=== PATIENT | female | born 2000 | race Two or more races ===

== ENCOUNTER 2020-10-08 05:55 | Inpatient (IN) | payer OTHER ==
[~2020-10-08] VITALS: Ht 172.7 cm; Wt 3.2 kg
[2020-10-08] MEDS ORDERED: PRENATAL CAPLE1 EAC1 (07:25)
== END 2020-10-11 14:13 | disposition home or self-care (01) | DRG 788 ==
LOC: OB/GYN 05:55 → LDR 05:55 → OB/GYN 22:01
PROVIDERS: ADMIT Specialist; ATTEND Specialist
PROC: 3E033VJ Introduction of Other Hormone into Peripheral Vein, Percutaneous Approach (ICD-10-PCS; 2020-10-08)
PROC: 3E0P7VZ Introduction of Hormone into Female Reproductive, Via Natural or Artificial Opening (ICD-10-PCS; 2020-10-08)
PROC: 4A1HXFZ Monitoring of Products of Conception, Cardiac Rhythm, External Approach (ICD-10-PCS; 2020-10-08)
PROC: 10D00Z1 Extraction of Products of Conception, Low, Open Approach (ICD-10-PCS; principal; 2020-10-08 20:00)
DX: O62.1 Secondary uterine inertia (principal); O61.0 Failed medical induction of labor; Z3A.39 39 weeks gestation of pregnancy; Z37.0 Single live birth; Z20.822 Contact with and (suspected) exposure to COVID-19

== ENCOUNTER 2024-09-13 11:47 | Emergency (ER) | payer OTHER ==
[~2024-09-13] VITALS: Ht 172.7 cm; Wt 117.9 kg
[~2024-09-13 11:47] MED LIST: PRENATAL CAPLE1 EAC1
[2024-09-13] MEDS ORDERED: 0.9 % SODIUM CHLORIDE 1,000 ML IV ONE (14:00)
[2024-09-13] MEDS ORDERED: ONDANSETRON HCL 2 MG/ML VIAL IV ONE (14:00)
[2024-09-13] MEDS ORDERED: FAMOtidine 10 MG/ML (4ML VIAL) IV ONE (14:00)
[2024-09-13 14:51] LABS: HEMATOCRIT 35.9 % (36.0-45.00); HEMOGLOBIN 11.9 g/dL (12.0-15.00); MEAN CELL VOLUME 76.5 fL (80.00-100.00); MEAN CORPUSCULAR HEMOGLOBIN 25.3 pg (27.00-32.0); PLATELET COUNT 258 K/uL (150-450); RED BLOOD COUNT 4.69 M/uL (4.00-6.00); RED CELL DISTRIBUTION WIDTH 15.2 % (11.5-14.5)
[2024-09-13 16:07] LABS: ALBUMIN 3.7 gm/dL (3.4-5.0); ALKALINE PHOSPHATASE 75 U/L (50-136); ALT/SGPT 42 U/L (12-78); ANION GAP 7 (10.0-20.0); AST/SGOT 38 U/L (15-37); BILIRUBIN TOTAL 0.37 mg/dL (0.3-1.2); BLOOD UREA NITROGEN 8 mg/dL (7-18); BUN CREA RATIO 10 (7.0-25.0); CALCIUM 8.9 mg/dL (8.5-10.1); CARBON DIOXIDE 32 mEq/L (21-32); CHLORIDE 105 mmol/L (98-107); CREATININE SERUM 0.78 mg/dL (0.55-1.02); GFR 90.73; GLOBULINA 3.7 G/DL (2.4-3.5); GLUCOSE FASTING 79 mg/dL (65-100); HCG QUANTITATIVE < 1 mUI/mL (1-3); OSMOLALITY SERUM 277 MOSM/KG (275-295); POTASSIUM 3.86 mEq/L (3.5-5.1); SODIUM 140 mmol/L (136-145); TOTAL PROTEIN 7.4 gm/dL (6.4-8.2)
[2024-09-13 17:00] LABS: PH,URINE 5.5 (5.0-8.0); URINE APPEARANCE Cloudy; URINE BILIRRUBIN Negative (NEGATIVE); URINE BLOOD Negative; URINE COLOR Dark Yellow; URINE GLUCOSE Negative (NEGATIVE); URINE KETONE 15 (NEGATIVE); URINE LEUKOCYTE Trace; URINE NITRATE Negative; URINE PROTEIN Trace (NEGATIVE); URINE UROBILINOGEN 0.2 E.U./dl
[2024-09-13 17:02] LABS: URINE EPITHELIAL CELLS 31.6 uL (0.0-38.8); URINE RBC 56.8 uL (0.0-20.8); URINE WBC 42.4 uL (0.0-23.2)
[2024-09-13 17:18] LABS: URINE CAST 0.44 uL (0.0-1.40); URINE CRYSTALS FEW /HPF
== END 2024-09-13 18:04 | disposition home or self-care (01) ==
LOC: ER 11:50
PROVIDERS: General Practice
DX: R11.10 Vomiting, unspecified (principal); A08.4 Viral intestinal infection, unspecified; Z20.822 Contact with and (suspected) exposure to COVID-19